=== PATIENT | male | born 1960 | race Two or more races ===

== ENCOUNTER 2016-10-24 04:19 | Emergency (ER) | payer SELFPAY ==
[~2016-10-24] VITALS: Ht 167.6 cm; Wt 68.0 kg
[2016-10-24] MEDS ORDERED: Lidocaine 1% 10mg/ml/Epi 0.005mg/ml 30ml vial INJ ONE (04:30)
[2016-10-24] MEDS ORDERED: TdaP Vaccine 0.5ml Syr IM ONE (04:30)
[2016-10-24 04:33] LABS: BASOPHILS % (AUTO) 1.2 % (0.0-2.0); EOSINOPHILS % (AUTO) 0.6 % (0.0-3.0); LYMPHOCYTES % (AUTO) 25.5 % (20.0-45.0); MEAN CORPUSCULAR HEMOGLOBIN 30.9 PG (27.0-31.0); MEAN CORPUSCULAR HGB CONC 32.9 G/DL (32.0-36.0); MEAN CORPUSCULAR VOLUME 94 FL (80-99); MEAN PLATELET VOLUME 13.1 FL (6.5-10.1); MONOCYTES % (AUTO) 4.8 % (1.0-10.0); NEUTROPHILS % (AUTO) 67.8 % (45.0-75.0); PLATELET COUNT 120 K/UL (150-450); RED BLOOD COUNT 4.21 M/UL (4.70-6.10); RED CELL DISTRIBUTION WIDTH 12.3 % (11.6-14.8); WHITE BLOOD COUNT 11.5 K/UL (4.8-10.8)
[2016-10-24 04:47] LABS: PROTHROMBIN TIME 10.4 SEC (9.30-11.50)
[2016-10-24 04:49] LABS: ALANINE AMINOTRANSFERASE 49 U/L (3-41); ALBUMIN/GLOBULIN RATIO 1.8 (1.0-2.7); ANION GAP 15 (5-15); ASPARTATE AMINO TRANSFERASE 59 U/L (5-40); CALCIUM 8.4 mg/dL (8.6-10.2); CARBON DIOXIDE 26 mEQ/L (20-30); CHLORIDE 101 mEQ/L (98-107); GLOMERULAR FILTRATION RATE > 60 mL/min (>60); HEMOLYSIS 15; POTASSIUM 3.6 mEQ/L (3.4-4.9); SODIUM 142 mEQ/L (135-145); TOTAL PROTEIN 6.3 g/dL (6.6-8.7); TROPONIN I < 0.30 ng/mL (<=0.30)
[2016-10-24 05:13] VITALS: BP 107/73
--- NOTE | 2016-10-24 05:23 | Emergency Room Report ---
History of Present Illness General Chief Complaint: Laceration Source: Patient, EMS Present Illness HPI Patient is a 56-year-old male who presented after increased pain to left forearm. The patient had been on time of injury. Patient was brought in by EMS. Patient reports having fallen. He cannot state mechanism of injury. Patient history was limited by recent alcohol use. Patient denies recent tetanus vaccine. He denied any allergies. Allergies: Coded Allergies: No Known Allergies (Unverified , 10/24/16) Patient History Past Medical History: see triage record Reviewed Nursing Documentation: PMH: Agreed, PSxH: Agreed Nursing Documentation-PMH Past Medical History: No Stated History Review of Systems All Other Systems: negative except mentioned in HPI Physical Exam Vital Signs Date Time Temp Pulse Resp B/P Pulse Ox O2 Delivery O2 Flow Rate FiO2 10/24/16 04:09 97.0 86 18 50/35 96 General Appearance: alert, GCS 15, moderate distress ENT: normal pharynx Neck: full range of motion, supple, thyroid normal Respiratory: chest non-tender Cardiovascular #1: normal inspection, normal peripheral pulses, regular rate, rhythm Gastrointestinal: normal bowel sounds, non tender, soft Musculoskeletal: back normal, gait/station normal Neurologic: alert, oriented x3, responsive, 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 3 cm dorsum of forearm benji Procedures Laceration/Wound Repair Laceration/Wound Repair : Consent: Verbal Wound Location: upper extremity Wound's Depth, Shape: superficial Wound Length (cm): 3 Wound Explored: no foreign body removed Irrigated w/ Saline (ccs): 100 Betadine Prep?: Yes Anesthesia: Lidocaine w/ Epi Wound Debrided: minimal Wound Repaired With: lily - 6 Sterile Dressing Applied?: Yes Type of Splint Applied: volar Patient Tolerated: Well Complications: None Medical Decision Making Diagnostic Impression: Primary Impression: Laceration Additional Impressions: Forearm laceration Alcohol intoxication ER Course Patient presented for a forearm injury. Differential diagnosis included wasn't limited to foreign body, muscle laceration, arterial injury among others.Because of complexity of patient's case laboratory testing and imaging studies were ordered.Patient was noted to have x-ray imaging of the left forearm 2 views interpreted by me with normal bony 1 without a fracture. There is no to foreign body noted. Patient was noted to have some evidence of muscle injury. This appear to be partially nature. Patient was placed in a volar splint.The patient was given IV antibiotics.The patient is advised to follow up with primary care in 1-2 days. Patient is advised to return if any worsening condition or if any changes in status that are concerning. Labs Test 10/24/16 04:24 White Blood Count 11.5 K/UL (4.8-10.8) Red Blood Count 4.21 M/UL (4.70-6.10) Hemoglobin 13.0 G/DL (14.2-18.0) Hematocrit 39.6 % (42.0-52.0) Mean Corpuscular Volume 94 FL (80-99) Mean Corpuscular Hemoglobin 30.9 PG (27.0-31.0) Mean Corpuscular Hemoglobin Concent 32.9 G/DL (32.0-36.0) Red Cell Distribution Width 12.3 % (11.6-14.8) Platelet Count 120 K/UL (150-450) Mean Platelet Volume 13.1 FL (6.5-10.1) Neutrophils (%) (Auto) 67.8 % (45.0-75.0) Lymphocytes (%) (Auto) 25.5 % (20.0-45.0) Monocytes (%) (Auto) 4.8 % (1.0-10.0) Eosinophils (%) (Auto) 0.6 % (0.0-3.0) Basophils (%) (Auto) 1.2 % (0.0-2.0) Prothrombin Time 10.4 SEC (9.30-11.50) Prothromb Time International Ratio 1.0 (0.9-1.1) Activated Partial Thromboplast Time 23 SEC (23-33) Sodium Level 142 mEQ/L (135-145) Potassium Level 3.6 mEQ/L (3.4-4.9) Chloride Level 101 mEQ/L (98-107) Carbon Dioxide Level 26 mEQ/L (20-30) Anion Gap 15 (5-15) Blood Urea Nitrogen 10 mg/dL (7-23) Creatinine 1.0 mg/dL (0.7-1.2) Estimat Glomerular Filtration Rate > 60 mL/min (>60) Glucose Level 133 mg/dL (74-106) Calcium Level 8.4 mg/dL (8.6-10.2) Total Bilirubin 0.4 mg/dL (0.0-1.2) Aspartate Amino Transf (AST/SGOT) 59 U/L (5-40) Alanine Aminotransferase (ALT/SGPT) 49 U/L (3-41) Alkaline Phosphatase 68 U/L (40-129) Troponin I < 0.30 ng/mL (<=0.30) Total Protein 6.3 g/dL (6.6-8.7) Albumin 4.1 g/dL (3.5-5.2) Globulin 2.2 g/dL Albumin/Globulin Ratio 1.8 (1.0-2.7) Last Vital Signs Date Time Temp Pulse Resp B/P Pulse Ox O2 Delivery O2 Flow Rate FiO2 10/24/16 04:09 97.0 86 18 50/35 96 Status: improved Disposition: HOME, SELF-CARE Condition: Stable ShinManuel Oct 24, 2016 05:23
[2016-10-24 05:35] VITALS: BP 114/78
[2016-10-24] MEDS ORDERED: ceFAZolin sod 1 GM in D5W 55 ML IVPB SCH (06:00)
[2016-10-24] MEDS ORDERED: Thiamine HCl 100 MG in D5W 55 ML IVPB ONE (06:00)
[2016-10-24] MEDS ORDERED: Thiamine HCl 100mg/ml Inj ONE (06:15)
[2016-10-24 06:34] VITALS: BP 81/47
[2016-10-24] MEDS ORDERED: NORCO 5-325 TA1 EACH ORAL (06:49)
[2016-10-24] MEDS ORDERED: KEFLEX500 MG ORAL (06:49)
[2016-10-24 07:00] VITALS: BP 112/76
[2016-10-24 08:35] VITALS: BP 102/75
--- NOTE | 2016-10-24 10:54 | Diagnostic Imaging Report ---
Indications: PAIN Technique: Two views of the left forearm Comparison: None Findings: Surgical skin lily are seen the proximal forearm no underlying bony destruction or radiopaque foreign body. No definite acute fractures. No dislocations. Impression: No acute bony trauma or foreign body Evidence of recently repaired soft tissue injury
--- NOTE | 2016-10-27 16:53 | Cardiology Report ---
APPROVED REPORT EKG Measurement Heart [id number] Normal sinus rhythm Normal ECG
== END 2016-10-24 08:37 | disposition home or self-care (01) ==
LOC: EDBD 04:19 → EMR 06:46
DX: S51.812A Laceration without foreign body of left forearm, initial encounter (principal); W19.XXXA Unspecified fall, initial encounter; Y93.9 Activity, unspecified; Y92.9 Unspecified place or not applicable; Z23 Encounter for immunization; F10.129 Alcohol abuse with intoxication, unspecified
CPT/HCPCS: 12002; 36415; 73090; 80053; 82962; 84484; 85025; 85610; 85730; 86850; 86900; 86901; 90471; 90715; 93005; 96360; 96361; 96374; 99284; J0690